=== PATIENT | male | born 1985 | race Caucasian/White ===

== ENCOUNTER 2018-06-28 13:26 | Inpatient (IN) | payer MEDICAID ==
[~2018-06-28] VITALS: Ht 177.8 cm; Wt 79.5 kg
--- NOTE | 2018-06-28 13:48 | NUR ---
BIB [facility] FOR [facility] FOR C/O SI. PT BECAME ANGRY AND COMBATIVE. [employer] WAS CALLED. PLACED ON LEGAL BY [employer] FOR PLAN TO [place]. PT DENIES SA ATTEMPTS. HX SI. PT RESTING ON GURNEY. NADN. ROOM SECURED. SITTER AT BEDSIDE. WARM BLANKET PROVIDED.
--- NOTE | 2018-06-28 14:01 | NUR ---
PT PROVIDED W/ SI LUNCH TRAY.
[2018-06-28 14:10] LABS: AMPHETAMINE SCREEN, URINE Positive (Negative); BARBITURATE SCREEN, URINE Negative (Negative); BENZODIAZEPINE SCREEN, URINE Negative (Negative); CANNABINOID SCREEN, URINE Positive (Negative); COCAINE SCREEN, URINE Negative (Negative); METHADONE SCREEN, URINE Negative (Negative); OPIATE SCREEN, URINE Negative (Negative)
[2018-06-28 14:32] LABS: SALICYLATE LEVEL < 1.7 mg/dL (2.8-20.0)
[2018-06-28 14:33] LABS: ACETAMINOPHEN < 2 mcg/mL (10-30)
--- NOTE | 2018-06-28 15:16 | NUR ---
PT RESTING ON GURNEY. NADN. PRINGLE.
[2018-06-28 15:22] LABS: BASOPHILS # (AUTO) 0.05 x10^3/uL (0-0.1); BASOPHILS % (AUTO) 0 % (0-1); EOSINOPHILS % (AUTO) 2 % (1-7); LYMPHOCYTES # (AUTO) 1.87 x10^3/uL (1-3.4); LYMPHOCYTES % (AUTO) 15 % (22-44); MD NO; MEAN CORPUSCULAR HEMOGLOBIN 29.8 pg (27.5-34.5); MEAN CORPUSCULAR HGB CONC 33.3 g/dL (33.2-36.2); MEAN CORPUSCULAR VOLUME 89.5 fL (81-97); MEAN PLATELET VOLUME 8.7 fL (7.4-10.4); MONOCYTES # (AUTO) 0.95 x10^3/uL (0.2-0.8); MONOCYTES % (AUTO) 8 % (2-9); NEUTROPHILS # (AUTO) 9.48 x10^3/uL (1.8-6.8); NEUTROPHILS % (AUTO) 76 % (42-75); PLATELET COUNT 304 x10^3/uL (130-400); RED BLOOD COUNT 4.75 x10^6/uL (4.38-5.82); RED CELL DISTRIBUTION WIDTH 13.8 % (9.4-14.8)
[2018-06-28 15:40] LABS: CHLORIDE 106 mmol/L (98-107)
[2018-06-28 15:45] LABS: ANION GAP 8 mmol/L (5-15); CALCIUM 8.8 mg/dL (8.5-10.1); CREATININE 1.13 mg/dL (0.7-1.3)
[2018-06-28] MEDS ORDERED: ONDANSETRON ODT 4 MG PO PRN (16:00)
[2018-06-28] MEDS ORDERED: LORazepam 2 MG/ML, 1ML IM PRN (16:00)
[2018-06-28] MEDS ORDERED: DOCUSATE 100 MG CAPSULE PO PRN (16:00)
--- NOTE | 2018-06-28 16:30 | NUR ---
PT RESTING ON GURNEY. NADN. PRINGLE.
[2018-06-28] MEDS ORDERED: LORazepam 2 MG/ML, 1ML ONE (16:31)
--- NOTE | 2018-06-28 17:10 | NUR ---
REPORT GIVEN TO NAMRATA WEBB RN. ALL QUESTIONS ANSWERED. AWAITING PT TRANSPORT.
--- NOTE | 2018-06-28 17:11 | NUR ---
SBAR received from [facility] pt will be coming to [address] [place] [address]
[2018-06-28 17:32] VITALS: BP 158/75
[2018-06-28] MEDS: QUETIAPINE 25MG TABLET PO PRN (20:22)
[2018-06-29] MEDS: QUETIAPINE 25MG TABLET PO PRN (11:53)
[2018-06-29] MEDS ORDERED: ZIPRASIDONE 20 MG INJ IM ONE ×2 (17:33→18:00)
[2018-06-30] MEDS: ACETAMINOPHEN 325 MG TABLET PO PRN (08:26)
[2018-06-30] MEDS: QUETIAPINE 25MG TABLET PO PRN (08:26)
[2018-06-30] MEDS: LORazepam 1MG TABLET PO PRN ×2 (08:27→20:28)
[2018-06-30] MEDS ORDERED: ZIPRASIDONE 20 MG INJ IM PRN (13:00)
[2018-06-30 13:01] VITALS: BP 139/89
[2018-06-30 13:16] LABS: BASOPHILS # (AUTO) 0.05 x10^3/uL (0-0.1); BASOPHILS % (AUTO) 0 % (0-1); EOSINOPHILS # (AUTO) 0.26 x10^3/uL (0-0.4); EOSINOPHILS % (AUTO) 2 % (1-7); LYMPHOCYTES % (AUTO) 14 % (22-44); MD NO; MEAN CORPUSCULAR HEMOGLOBIN 30.6 pg (27.5-34.5); MEAN CORPUSCULAR HGB CONC 34.1 g/dL (33.2-36.2); MEAN CORPUSCULAR VOLUME 89.7 fL (81-97); MEAN PLATELET VOLUME 8.6 fL (7.4-10.4); MONOCYTES % (AUTO) 7 % (2-9); NEUTROPHILS # (AUTO) 8.98 x10^3/uL (1.8-6.8); NEUTROPHILS % (AUTO) 77 % (42-75); PLATELET COUNT 292 x10^3/uL (130-400); RED BLOOD COUNT 4.78 x10^6/uL (4.38-5.82); RED CELL DISTRIBUTION WIDTH 13.3 % (9.4-14.8)
[2018-06-30] MEDS ORDERED: OMNIPAQUE 350 MG/ML, 100ML BOTTLE ONE (15:14)
[2018-06-30] MEDS: IBUPROFEN 800 MG TABLET PO SCH ×2 (16:00→20:26)
[2018-06-30] MEDS ORDERED: IBUPROFEN 200 MG TABLET ONE ×3 (16:40→20:22)
[2018-06-30] MEDS: AMOXICILLIN/CLAV 875-125MG TABLET PO SCH (16:42)
[2018-06-30 20:13] VITALS: BP 148/70
[2018-06-30] MEDS ORDERED: IBUPROFEN 600 MG TABLET ONE (20:22)
[2018-06-30] MEDS: DOXYCYCLINE 100MG TABLET PO SCH (21:32)
[2018-07-01] MEDS: AMOXICILLIN/CLAV 875-125MG TABLET PO SCH ×2 (04:32→16:17)
[2018-07-01 08:00] VITALS: BP 135/80
[2018-07-01] MEDS ORDERED: IBUPROFEN 600 MG TABLET ONE ×3 (08:15→19:48)
[2018-07-01] MEDS ORDERED: IBUPROFEN 200 MG TABLET ONE ×3 (08:15→19:48)
[2018-07-01] MEDS: IBUPROFEN 800 MG TABLET PO SCH ×3 (08:19→19:57)
[2018-07-01] MEDS: DOXYCYCLINE 100MG TABLET PO SCH ×2 (09:05→19:57)
[2018-07-01] MEDS: ACETAMINOPHEN 325 MG TABLET PO PRN (18:29)
[2018-07-01] MEDS: QUETIAPINE 25MG TABLET PO PRN (19:51)
[2018-07-01] MEDS: LORazepam 1MG TABLET PO PRN (19:52)
[2018-07-01 20:26] VITALS: BP 147/79
[2018-07-02] MEDS: LORazepam 1MG TABLET PO PRN (08:08)
[2018-07-02] MEDS: QUETIAPINE 25MG TABLET PO PRN (08:09)
[2018-07-02] MEDS: IBUPROFEN 800 MG TABLET PO SCH (08:19)
[2018-07-02] MEDS: DOXYCYCLINE 100MG TABLET PO SCH (08:19)
[2018-07-02] MEDS ORDERED: AMOXICILLIN/CLAV 875-125MG TABLET PO SCH (09:00)
== END 2018-07-02 11:24 | DRG 641 ==
LOC: ED 15:36 → EDIP 15:37 → ED 17:02 → 2N 17:30
PROVIDERS: ADMIT Internal Medicine; ATTEND Internal Medicine
DX: E86.0 Dehydration (principal); R45.851 Suicidal ideations; F12.10 Cannabis abuse, uncomplicated; F15.10 Other stimulant abuse, uncomplicated; F32.9 Major depressive disorder, single episode, unspecified; F17.200 Nicotine dependence, unspecified, uncomplicated; Z71.6 Tobacco abuse counseling; D72.829 Elevated white blood cell count, unspecified; F41.9 Anxiety disorder, unspecified; L53.9 Erythematous condition, unspecified
CPT/HCPCS: 36415; 80048; 80307; 80329; 85025; G0378; J3486; Q9967; G0480; J2060